=== PATIENT | female | born 1945 | race Caucasian/White ===

== ENCOUNTER 2021-11-25 10:34 | Emergency (ER) | payer MEDICARE, OTHER ==
[2021-11-25] MEDS ORDERED: Sodium Chloride 0.9% 100 ML BAG ONE (10:53)
[2021-11-25] MEDS ORDERED: Lactated Ringer's 1,000 ML BAG ONE (10:53)
[2021-11-25] MEDS ORDERED: Lactated Ringer's 1,000 ML ONE (11:46)
[2021-11-25] MEDS ORDERED: Ondansetron PF 4 MG/2 ML Vial ONE (11:46)
[2021-11-25 11:52] LABS: #Lymphocytes 0.6 thou/uL (1.20-3.40); #Monocytes 0.4 thou/uL (0.11-0.59); #Neutrophils 10.2 thou/uL (1.40-6.50); %Basophils 0.3 % (0.0-1.0); %Eosinophils 0.3 % (0.0-10.0); %Lymphocytes 5.3 % (21.0-51.0); %Monocytes 3.4 % (0.0-10.0); %Neutrophils 90.7 % (42.0-75.0); Hemoglobin 13.1 g/dL (12.0-16.0); Mean Corpuscular HGB CONC 32.2 g/dL (32.0-36.0); Mean Platelet Volume 6.2 fL (7.4-10.4); Platelet Count 227 thou/uL (130-400); RBC Distribution Width 12.7 % (11.5-14.5); Red Blood Cell (RBC) Count 4.69 mill/uL (4.20-5.40); White Blood Cell (WBC) Count 11.3 thou/uL (4.8-10.8)
[2021-11-25] MEDS ORDERED: Clindamycin/D5W 900 mg/50 ml Premix Bag ONE (11:59)
[2021-11-25] MEDS ORDERED: Meropenem 1 GM VIAL ONE (11:59)
[2021-11-25 12:01] LABS: Prothrombin Time 13.1 sec (12.0-14.7)
[2021-11-25 12:02] LABS: PTT 26.2 sec (22.9-36.1)
[2021-11-25 12:18] LABS: ALT (SGPT) 10 U/L (8-55); AST (SGOT) 13 U/L (5-34); Albumin 4.3 g/dL (3.4-4.8); Alkaline Phosphatase 121 U/L (40-110); Anion Gap 16 mmol/L (10-20); BUN (Urea Nitrogen) 26 mg/dL (9.8-20.1); Bilirubin, Total 0.8 mg/dL (0.2-1.2); Calc. Creatinine Clearance 0 mL/min (70-130); Calcium 9.6 mg/dL (7.8-10.44); Carbon Dioxide 25 mmol/L (23-31); Chloride 102 mmol/L (98-107); Globulin 2.4 g/dL (2.4-3.5); Glucose 116 mg/dL (83-110); Lipase 12 U/L (8-78); Magnesium 1.3 mg/dL (1.6-2.6); Potassium 4.3 mmol/L (3.5-5.1); Protein, Total 6.7 g/dL (5.8-8.1); Sodium 139 mmol/L (136-145)
[2021-11-25] MEDS ORDERED: Magnesium 2 GM/50 ML BAG (IN WATER) ONE (12:43)
[2021-11-25] MEDS ORDERED: Sodium Chloride 0.9% 250 ML 500 ML ONE (13:35)
[2021-11-25 13:45] LABS: SARS-CoV-2 NAA Rapid Test Not Detected (NotDetected)
[2021-11-25] MEDS ORDERED: Acetaminophen 500 MG TAB ONE (14:14)
== END 2021-11-25 14:19 | disposition short-term general hospital (02) ==
LOC: MADERS 10:34
DX: A41.9 Sepsis, unspecified organism (principal); L03.113 Cellulitis of right upper limb; E83.42 Hypomagnesemia; E03.9 Hypothyroidism, unspecified; I10 Essential (primary) hypertension; Z79.899 Other long term (current) drug therapy; Z20.822 Contact with and (suspected) exposure to COVID-19
CPT/HCPCS: 0240U; 36415; 70450; 71045; 80053; 83605; 83690; 83735; 84443; 84484; 85025; 85610; 85730; 86140; 87040; 93005; 94760; 96365; 96367; 96368; 96375; J2185; J2405; J3370; J3475; J3490; J7050; J7120

== ENCOUNTER 2022-06-11 10:41 | Emergency (ER) | payer MEDICARE, OTHER ==
[2022-06-11] MEDS ORDERED: Clindamycin 150 MG CAP ONE (11:27)
== END 2022-06-11 11:28 | disposition home or self-care (01) ==
LOC: MADERS 10:41
DX: L03.113 Cellulitis of right upper limb (principal); K21.9 Gastro-esophageal reflux disease without esophagitis; E03.9 Hypothyroidism, unspecified; I10 Essential (primary) hypertension; M06.9 Rheumatoid arthritis, unspecified; Z85.3 Personal history of malignant neoplasm of breast; Z79.899 Other long term (current) drug therapy
CPT/HCPCS: 99283